=== PATIENT | male | born 1975 | race Caucasian/White ===

== ENCOUNTER 2022-12-07 07:04 | Day surgery (SDC) | payer OTHER ==
[~2022-12-07] VITALS: Ht 177.8 cm; Wt 66.7 kg
[~2022-12-07 07:04] MED LIST: LEVOTHYROXINE125 MC1 PO; TYLENOL PM EXS1 EACH PO
--- NOTE | 2022-12-07 08:30 | NUR ---
12/07/22 0830 Alejandra Quarles 0807-PATIENT ARRIVED TO PACU AWAKE LAYING LEFT LATERAL. DENIES PAIN OR NAUSEA. ORIENTED TO PACU. 2L NC RR EVEN. PATIENT MOVES ALL EXTREMITIES ENCOURAGED TO PASS GAS. IVF INFUSING
--- NOTE | 2022-12-07 11:59 | OR ---
[facility] [address], [place] [address] Signed DATE OF OPERATION: 12/07/2022 SURGEON: Rehan Meeks MD PREOPERATIVE DIAGNOSIS: Guaiac-positive stool. POSTOPERATIVE DIAGNOSIS: Unremarkable colonoscopy. PROCEDURE: Colonoscopy without biopsy. ESTIMATED BLOOD LOSS: None. INDICATIONS: Mario is a 47-year-old gentleman, asked to see me for his initial colonoscopy. He gave three stool samples and apparently they came back guaiac positive. He said he has no lower GI complaints. There is no family history of colon cancer or polyps. In the office, I gave him a pamphlet on colonoscopy. We had reviewed the nature of the test. There is risk including, but not limited to gas bloating, crampy abdominal pain, bleeding, perforation requiring surgery, and missed diagnosis. We also reviewed the written instructions for the bowel prep line by line. He also understands the need for IV conscious sedation. He had expressed understanding and wished to proceed. PROCEDURE NOTE: Mario was taken into our endoscopy suite, placed in the left lateral decubitus position. He was given a total of 6 mg of Versed and 150 mcg of fentanyl to cover the case. A digital rectal exam was performed. This was unremarkable. He had good sphincter tone. There were no external hemorrhoids. There were no masses. His prostate gland is slightly indurated and swollen consistent with his age. The adult colonoscope was then introduced and advanced under direct visualization of the camera. It took a little extra sedation and some abdominal compression in order to get the camera around and into the cecum itself. His prep was quite excellent. We could easily see the appendiceal orifice and the ileocecal valve. The scope was then slowly withdrawn. We took pictures throughout for photodocumentation. We found no pathology whatsoever throughout his entire colon or rectum. There were no polyps and no diverticula. We saw no AV malformations. Upon retroflexion of the scope, he has no internal hemorrhoids. After this, the gas was suctioned out and the colonoscope removed. Mario tolerated the Electronically Signed By: REHAN MEEKS MD 12/07/22 1159 PATIENT NAME: MARIO ORDAZ MOMO OPERATIVE REPORT DATE OF : 75 REPORT #: [id number] PHYSICIAN: REHAN MEEKS MD PCP: PRIYA AVALOS REPORT IS CONFIDENTIAL AND NOT TO BE RELEASED WITHOUT AUTHORIZATION [facility] [address] [place] [id number] Signed procedure quite well. RECOMMENDATIONS: Mario will follow up in 10 years for repeat screening colonoscopy. MD STEPHANIE Plummer/RAINL /[id number] cc: MD Priya Plummer PA Copies: REHAN MEEKS MD, LINDA PA ~ Electronically Signed By: REHAN MEEKS MD 12/07/22 1159 PATIENT NAME: MARIO ORDAZ OPERATIVE REPORT DATE OF : 75 REPORT #: [id number] PHYSICIAN: REHAN MEEKS MD PCP: PRIYA AVALOS REPORT IS CONFIDENTIAL AND NOT TO BE RELEASED WITHOUT AUTHORIZATION
== END 2022-12-07 09:17 | disposition home or self-care (01) ==
LOC: OPS 07:04 → DS 07:04 → OPS 08:15
PROVIDERS: ATTEND Colon & Rectal Surgery
PROC: 0DJD8ZZ Inspection of Lower Intestinal Tract, Via Natural or Artificial Opening Endoscopic (ICD-10-PCS; principal; 2022-12-07 08:15)
DX: R19.5 Other fecal abnormalities (principal); E03.9 Hypothyroidism, unspecified
CPT/HCPCS: 99153; G0500; J2250; J3010; J7121